=== PATIENT | female | born 1975 | race Caucasian/White ===

== ENCOUNTER 2022-10-07 13:26 | Inpatient (IN) | payer OTHER ==
[2022-10-07 13:37] VITALS: BMI 43.9
[2022-10-07] MEDS ORDERED: KETOROLAC TROMETHAMINE 30 MG/1 ML VIAL IM ONE (14:20)
[2022-10-07] MEDS ORDERED: METHOCARBAMOL 500 MG TABLET PO ONE (14:21)
[2022-10-07] MEDS ORDERED: LIDOCAINE 5% TOPICAL PATCH TP ONE (14:23)
[2022-10-07] MEDS ORDERED: METHOCARBAMOL 500 MG TABLET ONE (14:26)
[2022-10-07] MEDS ORDERED: KETOROLAC TROMETHAMINE 30 MG/1 ML VIAL ONE (14:26)
[2022-10-07] MEDS ORDERED: LIDOCAINE 5% TOPICAL PATCH ONE (14:26)
[2022-10-07 18:47] LABS: BASO % 0.8 % (0-2.0); EOS % 1.1 % (0-4.5); HEMATOCRIT 41.6 % (32.4-45.2); HEMOGLOBIN 14.1 GM/dL (10.7-15.3); LYMPH % 33.7 % (8-40); MCH 30.2 pg (25.7-33.7); MCHC 33.9 g/dl (32.0-36.0); MEAN CELL VOLUME 89.3 fl (80-96); MEAN PLT VOLUME 8.9 fl (7.5-11.1); MONO % 9.7 % (3.8-10.2); NEUT % 54.7 % (42.8-82.8); PLATELET COUNT 216 10^3/uL (134-434); RBC 4.66 M/mm3 (3.60-5.2); RDW 13.1 % (11.6-15.6); WHITE BLOOD COUNT 6.4 K/mm3 (4.0-10.0)
[2022-10-07 18:54] LABS: INR 1.18 (0.83-1.09); PROTHROMBIN TIME (PATIENT) 13.7 SEC (9.7-13.0)
[2022-10-07 18:57] LABS: ACTIVATED PTT 30.2 SECONDS (25.2-36.5)
[2022-10-07 19:13] LABS: CALCIUM 8.9 mg/dL (8.5-10.1)
[2022-10-07 19:14] LABS: ALBUMIN 3.4 g/dl (3.4-5.0); BLOOD UREA NITROGEN 11.8 mg/dL (7-18)
[2022-10-07 19:17] LABS: CREATININE 0.7 mg/dL (0.55-1.3)
[2022-10-07 19:18] LABS: BILIRUBIN,TOTAL 0.3 mg/dL (0.2-1)
[2022-10-07 19:19] LABS: TOT PROT 6.9 g/dl (6.4-8.2)
[2022-10-07] MEDS ORDERED: ENOXAPARIN NA (PORCINE) 120 MG/0.8 ML DISP.SYRIN SQ SCH (19:30)
[2022-10-07] MEDS ORDERED: ENOXAPARIN NA (PORCINE) 80 MG/0.8 ML DISP.SYRIN SQ ONE (19:44)
[2022-10-07] MEDS ORDERED: ENOXAPARIN NA (PORCINE) 40 MG/0.4 ML DISP.SYRIN SQ ONE (19:44)
[2022-10-07] MEDS: LIDOCAINE PATCH REMOVAL MC SCH (22:12)
[2022-10-07] MEDS ORDERED: ACETAMINOPHEN 1000 MG/100 ML BAG IVPB PRN (22:28)
[2022-10-08] MEDS: INSULIN SLIDING SCALE (NOVOLOG) 1 VIAL SQ SCH ×4 (06:01→22:30)
[2022-10-08 08:23] LABS: CALCIUM 8.5 mg/dL (8.5-10.1)
[2022-10-08 08:24] LABS: BLOOD UREA NITROGEN 13.7 mg/dL (7-18)
[2022-10-08 08:27] LABS: CREATININE 0.6 mg/dL (0.55-1.3); PHOSPHOROUS 3.8 mg/dL (2.5-4.9)
[2022-10-08 08:28] LABS: BILIRUBIN,TOTAL 0.6 mg/dL (0.2-1)
[2022-10-08 08:29] LABS: TOT PROT 6.5 g/dl (6.4-8.2)
[2022-10-08 08:35] LABS: BASO % 0.8 % (0-2.0); EOS % 0.7 % (0-4.5); HEMATOCRIT 38.6 % (32.4-45.2); HEMOGLOBIN 13.3 GM/dL (10.7-15.3); LYMPH % 29.5 % (8-40); MCH 30.6 pg (25.7-33.7); MCHC 34.6 g/dl (32.0-36.0); MEAN CELL VOLUME 88.6 fl (80-96); MEAN PLT VOLUME 9.4 fl (7.5-11.1); MONO % 9.2 % (3.8-10.2); NEUT % 59.8 % (42.8-82.8); PLATELET COUNT 197 10^3/uL (134-434); RBC 4.36 M/mm3 (3.60-5.2); WHITE BLOOD COUNT 5.9 K/mm3 (4.0-10.0)
[2022-10-08] MEDS: LOSARTAN POTASSIUM 50 MG TABLET PO SCH (09:51)
[2022-10-08] MEDS: ENOXAPARIN NA (PORCINE) 120 MG/0.8 ML DISP.SYRIN SQ SCH ×2 (10:22→22:29)
[2022-10-08 11:58] VITALS: RESP 18
[2022-10-08] MEDS: LIDOCAINE PATCH REMOVAL MC SCH (22:30)
[2022-10-09] MEDS: INSULIN SLIDING SCALE (NOVOLOG) 1 VIAL SQ SCH ×3 (06:08→16:50)
[2022-10-09 08:10] LABS: EOS % 1.2 % (0-4.5); HEMATOCRIT 39.3 % (32.4-45.2); HEMOGLOBIN 13.5 GM/dL (10.7-15.3); LYMPH % 33.2 % (8-40); MCH 30.5 pg (25.7-33.7); MCHC 34.3 g/dl (32.0-36.0); MEAN PLT VOLUME 9.4 fl (7.5-11.1); MONO % 8.2 % (3.8-10.2); NEUT % 56.4 % (42.8-82.8); PLATELET COUNT 206 10^3/uL (134-434); RBC 4.42 M/mm3 (3.60-5.2); RDW 13.2 % (11.6-15.6); WHITE BLOOD COUNT 5.3 K/mm3 (4.0-10.0)
[2022-10-09 08:30] LABS: CALCIUM 8.6 mg/dL (8.5-10.1)
[2022-10-09 08:31] LABS: BLOOD UREA NITROGEN 9.7 mg/dL (7-18); MAGNESIUM 2.1 mg/dL (1.8-2.4)
[2022-10-09 08:34] LABS: CREATININE 0.5 mg/dL (0.55-1.3); PHOSPHOROUS 3.5 mg/dL (2.5-4.9)
[2022-10-09] MEDS: ENOXAPARIN NA (PORCINE) 120 MG/0.8 ML DISP.SYRIN SQ SCH (10:55)
[2022-10-09] MEDS: LOSARTAN POTASSIUM 50 MG TABLET PO SCH (10:56)
[2022-10-09 11:46] VITALS: BP 133/73; PULSE 62; TEMP 98.2
[2022-10-11 03:16] LABS: DRVVT - 40.4 sec (0.0-47.0)
== END 2022-10-09 20:00 | disposition home or self-care (01) | DRG 197 ==
LOC: JER 13:26 → JERFT 13:26 → JERBED 18:49 → J7W 10-08 01:00
PROVIDERS: ADMIT Internal Medicine; ATTEND Internal Medicine
DX: I82.433 Acute embolism and thrombosis of popliteal vein, bilateral (principal); I10 Essential (primary) hypertension; E11.9 Type 2 diabetes mellitus without complications; Z79.84 Long term (current) use of oral hypoglycemic drugs; E66.01 Morbid (severe) obesity due to excess calories; Z68.41 Body mass index [BMI] 40.0-44.9, adult
CPT/HCPCS: 0241U-QW; 36415; 73562-TC-LT-FY; 73562-TC-RT-FY; 73610-TC-LT-FY; 80048; 80053; 82962; 83735; 84100; 84703; 85025; 85610; 85613; 85730; 85732; 93005; 93010; 93970-TC; 97116-GP; 99285-25

== ENCOUNTER 2023-03-05 14:15 | Emergency (ER) | payer OTHER ==
[2023-03-05 14:23] VITALS: BP 133/89; PULSE 61; RESP 18; TEMP 98; BMI 43.9
[2023-03-05] MEDS ORDERED: DIPHTH,PERTUSS(ACELL),TET 0.5 ML DISP.SYRIN IM ONE ×2 (15:28→15:32)
== END 2023-03-05 15:40 | disposition home or self-care (01) ==
LOC: JERFT 14:15
PROC: 0HQGXZZ Repair Left Hand Skin, External Approach (ICD-10-PCS; principal; 2023-03-05)
PROC: 3E0234Z Introduction of Serum, Toxoid and Vaccine into Muscle, Percutaneous Approach (ICD-10-PCS; 2023-03-05)
DX: S61.412A Laceration without foreign body of left hand, initial encounter (principal); W26.0XXA Contact with knife, initial encounter; Y28.1XXA Contact with knife, undetermined intent, initial encounter; Y93.G1 Activity, food preparation and clean up; Y92.9 Unspecified place or not applicable
CPT/HCPCS: 12001-25; 90471; 90715; 99282-25

== ENCOUNTER 2023-12-20 08:37 | Emergency (ER) | payer OTHER ==
[2023-12-20 08:55] VITALS: BP 131/88; PULSE 65; RESP 18; TEMP 98.3; BMI 42.4
[2023-12-20] MEDS ORDERED: ACETAMINOPHEN 500 MG TABLET (FP) ONE (10:04)
[2023-12-20] MEDS: ACETAMINOPHEN 500 MG TABLET (FP) PO ONE (10:07)
[2023-12-20] MEDS: MAG HYDROX/ALH/SMC/DPHA/LIDO 240 ML MOUTHWASH MM ONE (11:32)
== END 2023-12-20 11:33 | disposition home or self-care (01) ==
LOC: JERFT 08:37 → JER 08:37 → JERFT 11:33
DX: J02.9 Acute pharyngitis, unspecified (principal); R09.82 Postnasal drip; R09.81 Nasal congestion; R05.9 Cough, unspecified; R11.0 Nausea; R50.9 Fever, unspecified; Z20.822 Contact with and (suspected) exposure to COVID-19
CPT/HCPCS: 0241U-QW; 71046-TC-FY; 99283-25